=== PATIENT | male | born 1950 | race Caucasian/White ===

== ENCOUNTER 2019-09-13 12:49 | Emergency (ER) | payer OTHER ==
[~2019-09-13] VITALS: Ht 172.7 cm; Wt 72.6 kg
[2019-09-13] MEDS ORDERED: LOSARTAN POTASS25 MG PO ×2 (13:25→16:44)
[2019-09-13] MEDS ORDERED: TAMS0.4C PO (13:25)
[2019-09-13] MEDS ORDERED: SYNTHROID125 MCG PO (13:25)
[2019-09-13] MEDS ORDERED: PROTONIX40 MG PO (13:26)
== END 2019-09-13 16:53 | disposition home or self-care (01) ==
LOC: ER 12:49
DX: R80.8 Other proteinuria (principal)

== ENCOUNTER 2025-06-07 15:23 | Emergency (ER) | payer OTHER ==
[~2025-06-07] VITALS: Ht 172.7 cm; Wt 74.4 kg
[~2025-06-07 15:23] MED LIST: LOSARTAN POTASS25 MG PO; PROTONIX40 MG PO; SYNTHROID125 MCG PO; TAMS0.4C PO
[2025-06-07] MEDS ORDERED: LIPITOR40 MG PO (15:32)
[2025-06-07] MEDS ORDERED: CARVEDILOL ER40 MG PO (15:32)
[2025-06-07] MEDS ORDERED: ELIQUIS5 MG PO (15:32)
[2025-06-07] MEDS ORDERED: ALLER-TEC10 MG PO (15:33)
[2025-06-07] MEDS ORDERED: 0.9 % SODIUM CHLORIDE 500 ML IV STA (18:13)
[2025-06-07] MEDS ORDERED: FAMOtidine 10 MG/ML (4ML VIAL) IV PUSH STA (18:14)
[2025-06-07 18:47] LABS: BASO % 0.5 % (0.1-1.2); EOS # 0.09 (0.04-0.54); EOS % 1.6 % (0.7-7.0); LYMPH # 1.77 (1.18-3.74); LYMPH % 31.2 % (19.3-53.1); MEAN PLATELET VOLUME 9.20 fl (9.4-12.4); MONO # 0.49 (0.24-0.82); MONO % 8.6 % (4.7-12.5); NEUT # 3.28 (1.56-6.13); NEUT % 57.9 % (34.0-71.1); RED CELL DISTRIBUTION WIDTH 13.3 % (11.6-14.4)
[2025-06-07 19:11] LABS: ALT/SGPT 20.0 U/L (12-78); AST/SGOT 15.0 U/L (15-37); BILIRUBIN TOTAL 0.64 mg/dL (0.3-1.2); BUN CREA RATIO 12.0 (7.0-25.0); CREATININE SERUM 0.94 mg/dL (0.70-1.30); GFR 78.03; GLOBULINA 3.7 G/DL (2.4-3.5); GLUCOSE FASTING 93.0 mg/dL (65-100); OSMOLALITY SERUM 284.0 MOSM/KG (275-295)
== END 2025-06-07 19:55 | disposition home or self-care (01) ==
LOC: ER 15:23
DX: K21.9 Gastro-esophageal reflux disease without esophagitis (principal); K29.70 Gastritis, unspecified, without bleeding
CPT/HCPCS: 36415; 96369; 99282; J3490; J7042